=== PATIENT | male | born 1965 | race Caucasian/White ===

== ENCOUNTER 2021-05-13 15:51 | Emergency (ER) | payer OTHER ==
[~2021-05-13] VITALS: Ht 180.3 cm; Wt 74.8 kg
[2021-05-13 20:15] VITALS: BP 126/85
== END 2021-05-13 20:15 ==
LOC: ER 15:51
PROVIDERS: Emergency Medicine
DX: F03.90 Unspecified dementia, unspecified severity, without behavioral disturbance, psychotic disturbance, mood disturbance, and anxiety (principal); Z20.822 Contact with and (suspected) exposure to COVID-19; Z88.8 Allergy status to other drugs, medicaments and biological substances

== ENCOUNTER 2021-05-13 17:04 | Inpatient (IN) | payer OTHER ==
[~2021-05-13] VITALS: Ht 180.3 cm; Wt 74.9 kg
[2021-05-14 00:40] VITALS: BP 111/70
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
[2021-05-14 07:03] LABS: CHOLESTEROL 186 mg/dL (<200); HDL CHOLESTEROL 26 mg/dL (>40); LDL CHOLESTEROL 137 mg/dL (<100); TC:HDL 7.2 Ratio (Not establshd); TRIGLYCERIDE 118 mg/dL (<150); VLDL 24 mg/dL (<40)
[2021-05-14 07:25] VITALS: BP 114/76
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
[2021-05-14 11:36] VITALS: BP 114/76
--- NOTE | 2021-05-14 16:43 | NUR ---
Resummed care from overnight shift this am. Client was oriented to self and year, but did not present oriented to situation or place. 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 When asked what "here" meant in an attempt to reorient client, client stated "this place" and could not verbalize name of hospital. Client continued to ask for job applications during the assessment, with nursing encouraging him to speak to social work in regard to extrenous life events, as nursing was here for medical support. Client agreed. Client denied any anxiety and depression during assessment, insisting that he wanted to work. Client also denied any suicidal or homicidal ideation at this time. Client denied visual and audio hallucinations, though has been observed talking to the air, and has been redirected several times in terms of speaking to staff as opposed to "looking for his boss." Lung sounds were clear; client bowel sounds present. Client has continued to be redirected to activity area so that he can participate in groups. Client was also given tasks of identifying goals for treatment as opposed to work goals at this time. Client is currently in activity area sitting on chair. No further concerns.
[2021-05-14 21:04] VITALS: BP 122/81
[2021-05-15 00:06] LABS: GLYCOHEMOGLOBIN (HGB A1C) 5.9 % (4.8-5.6)
--- NOTE | 2021-05-15 03:15 | NUR ---
05-14-21 CARE TRANSFERRED 1900 OBSERVED PT SITTING IN DAY ROOM. LATER PT AAOX2, VSS, RR EVEN AND NONLABORED ON RA. PT DENIES SI/HI/VAH AND PAIN. PT REMAINES CALM AND COOPERATIVE THROUGHOUT NURSING ASSESSMENT. DURING MEDICATION ADMIN PT HAD NO DIFFICULTIES AND PT BED WAS ADJUSTED FOR COMFORT AND WEIGHT TAKEN 161.9 LBS/BED. LATER PT PRESENTSED CONFUSED, BUT EASILY REORIENTATED TO BEING AT THE HOSPITAL; THEN PT REPORTED "HE DID NOT DO WHAT THE SAID". OBSERVED PT WALKING TO DAY ROOM WITH STEADY GAIT. PT REMAINED COOPERATIVE AND EASIY DIRECTED. PT WILL CONTINUE TO BE MONITOR PER [facility] PROTOCOL.
[2021-05-15 10:26] VITALS: BP 138/84
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
[2021-05-15 20:25] VITALS: BP 123/85
--- NOTE | 2021-05-16 03:51 | NUR ---
05-15-21 CARE TRANSFERRED 1899 OBSERVED PT WALKING IN HALLWAY. LATER PT AAOX3, VSS, RR EVEN AND NONLABORED ON RA, PT HAS UE TREMORS, SKIN W/D. PT PRESENTS RESTLESS, BUT HAS REMAINED CALM AND COOPERATIVE. PT REPORT "I DID NOT DO WHAT THEY SAID I DID" PT ATTENTION SPAN BRIEF AND DISORGANIZED WITH THOUGHTS. LATER PT REQUESTED HIS MEDICATION AND UPON ADMIN PT HAD NO DIFFICULTIES. LATER PT HAD INCONTINENT MOMENT BUT TOLERATED CARES WELL WITH NO DIFFICULTIES. LATER NOTED PT RESTING IN BED WITH EYES CLOSED. PT WILL CONTINUE TO BE MONITOR PER [facility] PROTOCOL.
[2021-05-16 10:12] VITALS: BP 100/67
--- NOTE | 2021-05-16 11:37 | NUR ---
Phone call to [facility] ([phone]) for fax number. Faxed initial pt. updates.
--- NOTE | 2021-05-16 13:53 | NUR ---
Patient has been polite and cooperative this shift. He has been restless, roaming the unit. This morning, he insisted on applying for a job here. Pt needs frequent reminders of where his room is. He has spent time in the dayroom for meals and group. He denies having SI/HI or having pain. He took his medications whole with water, no difficulties present. Pt reports he had a BM sometime yesterday. He is easily redirected when needed, appears confused, unable to recall where the water station is, where his room/bathroom is. Will continue to monitor patient.
--- NOTE | 2021-05-16 15:01 | NUR ---
Provided patient with information regarding anxiety per patient's request.
--- NOTE | 2021-05-16 15:44 | NUR ---
EVERY SHIFT ASSESSMENTS INCLUDING FALLS RISK ASSESSMENT,REASSESMENT,SUICIDE REASSESSMENT ETC COMPLETED BY TRINIDAD DELVALLE LPN-REVIEWED AND DEEMED ACCURATE
[2021-05-16 19:31] VITALS: BP 120/88
--- NOTE | 2021-05-17 02:17 | NUR ---
05-16-21 CARE TRANSFERRED 1899 OBSERVED PT WALKING IN HALLWAY. LATER PT AAOX2, VSS, RR EVEN AND NONLABORED ON RA, PT DENIES PAIN AND SI/HI. PT ANXIOUS ABOUT NOT KNOWING WHERE HIS PARENTS ARE. WHEN PT ASKED WHAT YEAR, PT RESPONDED 2011, PT WAS EASILY BROUGHT TO 2020, PT HAS REMAINED CALM AND COOPERATIVE THROUGHOUT NURSING ASSESSMENT. DURING MEDICATION ADMIN PT LEFT LYING IN BED WITH EYES CLOSED, EASILY AWAKEN TO VOICE, PT REPOSITION SELF WITH EASE, PT HAD NO DIFFICULTIES TAKING MEDICATION WHOLE WITH WATER. PT BED WAS ADJUSTED FOR COMFORT. LATER PT CAME TO NURSING STATION AND REPORTED HE NEEDED TO USE A BATHROOM, PT WAS REORIENATED TO ENVIRONMENT. LATER NOTED PT RESTING SUPINE IN BED WITH EYES CLOSED. PT WILL CONTINUE TO BE MONITOR PER [facility] PROTOCOL.
[2021-05-17 10:48] VITALS: BP 111/83
--- NOTE | 2021-05-17 11:17 | NUR ---
Patient came out to eat breakfast. He had a good appetite and fluid intake. He took his medications whole, with water, no difficulty noted. Patient denies pain, SI/HI thoughts. He was restless this morning, he mentioned he was planning to see his girlfriend today, and that he is worried she has a new boyfriend. He was also aggitated this morning while sitting in the day room after the morning group session. He said "this is stupid, everyone here is stupid they don't know what they are doing, look at him he's throwing his blanket" provided 1 on 1, and he calmed down. Also provided coffee during snack time and he became less restless. He is currently laying down on the couch in the dayroom, sleeping. Patient has been cooperative this shift. Will continue to monitor patient closely.
--- NOTE | 2021-05-17 14:56 | NUR ---
INCREASINGLY RESTLESS,AGITATED AND INTRUSIVE STARTING AROUND APPROX 1330-APPEARS UNABLE TO SIT STILL FOR MORE THAN 2-3 MINUTES REDIRECTED TO ROOM/DAYROOM MULTIPLE TIMES BUT RETURNS WITHIN A MINUTE OR TWO. WILL FOLLOW STAFF INTO PEERS ROOMS AND REFUSE TO LEAVE.INCREASINGLY PARANOID ACCUSING STAFF OF HIDING HIS SHOES,WITHHOLDING FOOD/FLUIDS AND STEALING HIS BUSINESS CARDS-TAKEN TO ROOM SEVERAL TIMES IN ATTEMPT TO DECREASE STIMULI BUT REFUSES TO SIT DOWN OR STAY IN ROOM-WHEN STAFF IN ROOM WITH PT ATTEMPTING TO DEESCALATE HE BEGAN TO YELL LOUDLY INSISTING THAT NURSE DRIVE HIM TO HIS TRAILER AND BEGAN TO WALK RAPIDLY TOWARD STAFF IN THREATNING MANNER. DR MOSQUERA PAGED X2-ORDERS RECEIVED FOR ATIVAN/HALDOL PO -GIVEN AT 1450.
[2021-05-17 19:22] VITALS: BP 120/83
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
[2021-05-18 10:07] VITALS: BP 97/59
--- NOTE | 2021-05-18 12:20 | NUR ---
Alert to name only. When told what meds he was receiving he stated "I don't need any antipsychotics!" but was then compliant with medication. Denies SI/HI. Breath sounds clear. Reg HR auscultated. Color pink with brisk capillary refill and palpable peripheral pulses. No edema noted. Independent with voiding, brief dry. Active bowel sounds over soft, flat abdomen. Ambulates with regular, steady gait. Currently eating lunch with peers without s/o distress.
[2021-05-18 20:26] VITALS: BP 126/79
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
[2021-05-19 10:25] VITALS: BP 138/82
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
[2021-05-19 19:15] VITALS: BP 120/85
--- NOTE | 2021-05-20 01:49 | NUR ---
05-19-21 CARE TRANSFERRED 1899 OBSERVED COMMUNICATION WITH STAFF IN HALLWAY PT IRRITABLE AND WALKED AWAY. LATER PT AAOX2, VSS, RR EVEN AND NONLABORED ON RA, PT DENIES SI/HI/VAH, REPORTS HAVING A HEADACHE AND SCORING AT A 6 ON 0-10 SCALE. PT LUNGS CLEAR, HT RR, ABD SOFT AND ACTIVE. PT REPORTED HE IS WORRIED ABOUT HIS SON WELLBEING AND NEEDS TO GET OUT OF HERE. PT IRRITABLE BUT REMAINED COOPEATIVE WITH NURSING ASSESSMENT. DURING MEDICATION ADMIN PT HAD NO DIFFICUTIES TAKING WHOLE WITH WATER. DURING REASSESSMENT PAIN RELIEF AND SCORED AT A 2 ON 0-10 SCALE, PT REPORTED HIS HEAD FEELS BETTER. PT HAS BEEN RESTLESS. LATER NOTED PT MAKING BED, THEN REMAKING BED MULTIPLE TIMES, WHEN ASKED PT STATED HE NEEDED HELP, ASSISTED MAKING BED AND TURNING DOWN, PT HAVING IMPULSIVE MOMENT. LATER NOTED PT WAS RESTING WITH EYES CLOSED. PT WILL CONTINUE TO BE MONITOR PER [facility] PROTOCOL.
--- NOTE | 2021-05-20 08:10 | NUR ---
RT Progress Note- Joaquin has been present in the milieu throughout most of each day since his admission to [facility] last week. Joaquin often presents as restless and hyperfocused on discharge. He is easily frustrated and can be rude and hostile in conversation. RT team will continue to encourage Joaquin's participation in recreation therapy groups.
--- NOTE | 2021-05-20 09:39 | NUR ---
Updates faxed to Nat
[2021-05-20 09:54] VITALS: BP 124/93
--- NOTE | 2021-05-20 11:47 | NUR ---
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 PATIENT DENIES SI/HI, WILL CONTINUE TO MONITOR PATIENT FOR SAFETY AND BEHAVIOR.
[2021-05-20 19:35] VITALS: BP 128/64
[2021-05-20 20:06] VITALS: BP 128/64
--- NOTE | 2021-05-21 01:23 | NUR ---
PATIENT CARE WAS RESUMED AT 1900.HE IS ALERT AND AMBUATES. DENIES PAINS AND DISCOMFORT. ABLE TO VERBALIZE HIS CONCERN.LUNGS ARE CLEAR BS ACTIVE X4 QUADS. TOOK HIS MEDS WHOLE.CONTINENT OF BOWEL AND BLADDER.HE DENIES PAINS/AVH/SI/HI. BED IS LOW,LOCKED AND ALARMED. PATINET WAS AGGITATED AND PRN OLANZIPINE WAS GIVEN WITH SOME GOOD EFFECT. CONTINUE TO MONITOR
[2021-05-21 09:30] VITALS: BP 125/77
--- NOTE | 2021-05-21 10:41 | NUR ---
Nutrition followup: pt sleeping at time of visit. Per nsg was up all night. Eats 100% of meals on regular diet and at times will try to eat others food when he is done. Nsg requesting double portions of entree items. Will order. 05/19 BM. Weight discrepancy. 157# on 05/14 then 129# on 05/15. REC re-weigh pt for accuracy. Continue as low nutrition risk.
--- NOTE | 2021-05-21 11:06 | NUR ---
CARE ASSUMED AT 0700, PATIENT STANDING ON THE [address] WAY, PATIENT DID NOT GET ANY SLEEP LAST NIGHT, ALERT AND ORIENTED X2, TOOK MEDICATION WHOLE, PATIENT COMPLAINED OF WANTING MORE FOOD AFTER EATING BREAKFAST, DOCTOR DEMETRI WAS NOTIFIED AND DOUBLE PORTION OF MEAL HAS BEING ORDER FOR HIM, PATIENT CONFUSED OF WHERE THE BATHROOM WAS LOCATED AND URINATED ON HIMSELF TODAY. ASSESSMENT COMPLETED WITH CLEAR LUNGS, ACTIVE BOWEL SOUND WITH SOFT ABDOMEN, SKIN INTACT, NO EDEMA NOTED, HR REG, PATIENT AMBULATE ON A STEADY GAIT WITHOUT ANY DEVICES. PATIENT DENIES SI/HI, WILL CONTINUE TO MONITOR PATIENT FOR SAFETY AND BEHAVIOR.
--- NOTE | 2021-05-21 17:07 | NUR ---
PATIENT GOT AGITATED AND COMPLAINED OF NECK PAIN, TYLENOL PRN GIVEN, PATIENT ASSISTED IN TAKING A SHOWER AND A HAIR CUT DOWN.WILL CONTINUE TO MONITOR FOR SAFETY
[2021-05-21 19:59] VITALS: BP 113/80
--- NOTE | 2021-05-22 02:37 | NUR ---
RN paged bone worker Jael Gallegos to notify her the pt had not slept last night and was not falling asleep this chief analytics officer. Susanne Gallegos gave orders for 50mg Trazodone, repeat order in an hour if needed. Both doses were given. RN paged Susanne Gallegos again to notify her that pt was not sleeping, he was now exit seeking and hallucinations appeared worse; pt was picking at items not there, stated he saw ants crawling on him, was seeing a cat, pt was trying to eat his shirt. Susanne Gallegos gave orders to hold pt's morning dose of zyrexa, an ammonia level, and a CMP. Liseth Gallegos also instructed to monitor pt's output through the night.
--- NOTE | 2021-05-22 09:21 | NUR ---
05-22-2021--919--Patient came to my door and knocked. Let him in. He asked who his SW was and I explained it was Juliana and she wouldn't be in today. Patient appeared calmer today and his speech was more coherent and not as rough.
[2021-05-22 10:14] VITALS: BP 119/57
[2021-05-22 10:45] LABS: ALBUMIN 3.4 g/dL (3.4-5.0); CALCIUM 9.3 mg/dL (8.5-10.1); CREATININE 1.4 mg/dL (0.7-1.3); POTASSIUM 3.8 mmol/L (3.5-5.1); TOTAL BILIRUBIN 0.3 mg/dL (0.2-1.0); TOTAL PROTEIN 7.6 g/dL (6.4-8.2)
--- NOTE | 2021-05-22 13:56 | NUR ---
NOTED TO BE SOMULENT UPON INITIAL APPROACH THIS AM-SITTING ON SOFA IN DAYROOM WITH CHIN TO CHEST AND EYES CLOSED APPEARS TO BE RESTING QUIETLY-AWAKED FOR AM MEDS/BREAKFAST AND ALTHOUGH SLOW TO RESPOND TO VERBAL QUEING/DIRECTION DID EVENTUALLY DO SO AND WAS ABLE TO COMPLETE ABOUT 50 PERCENT OF MEAL PROVIDED.AM MEDICATIONS HELD PER MD ORDER. SPEECH IS MUMBLED,FRAGMENTED,INCOHERENT. GAIT VERY UNSTEADY WAS ATTEMPTING TO WALK WITH EYES CLOSED AND NOT HOLDING ONTO WALKER WITH BOTH HANDS-STUMBLED AND WOULD HAVE FALLEN TO FLOOR HAD STAFF NOT ARELY THERE TO CATCH WHEN FALLING. RESISTVE WITH ALLOWING STAFF TO WALK WITH HIM YELLING OUT"I CAN DO THIS"
--- NOTE | 2021-05-22 17:24 | NUR ---
NOTED TO BE RESTING QUIETLY IN ROOM SINCE APPROX 1100-ROUSABLE TO VERBAL STIMULI HOWEVER SOON RETURNS TO SLEEP. RESPIRATIONS COUNTED AT BEDSIDE AND BREATHING NOTED TO BE EVEN/REGULAR.
[2021-05-22 19:54] VITALS: BP 126/77
--- NOTE | 2021-05-23 00:47 | NUR ---
At onset of shift pt was wandering in the hallway. This shift pt was alert and broad affect. Pt was only oriented to self. Pt remains delusional; stating he needed to work on his car, pt made comments about people wanting to kill him. Pt was compliant with medication, but did ask if we were trying "to knock him out." Pt was compliant with vital signs. During conversation with RN, pt was very tangential and his answers to questions were vgue. 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 Pt went to bed at a reasonable time. Will continue to monitor.
--- NOTE | 2021-05-23 09:12 | NUR ---
05-23-2021--899--Patient came to my office wantong to get daxa of his VA advocate. 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 I explained it was Monday and he would need to wait to talk to his soical worker and that the VA advocates aren't available on Monday. He appeared satisfied and walked away from my office.
[2021-05-23 09:49] VITALS: BP 113/98
--- NOTE | 2021-05-23 12:57 | NUR ---
PATIENT CARE ASSUMED AT 0700 05/23/21, PATIENT WARDERING ON THE HALLWAY, ALERT AND ORIENTED X2, TOOK MEDIACTION WHOLE WITH WATER, ASSESSMENT COMPLETED, BREATH SOUND CLEAR, BOWEL SOUND ACTIVE, REG HR, SKIN INTACT, NO EDEMA NOTED, PATIENT CONTINUE TO WARDER AROUND THE COMMON AREA AND HALLWAY, HE AMBULATE ON A STEADY GAIT, INCONTINENT SOMETIMES, PATIENT IS CONFUSED, DENIES SI/HI, WILL CONTINUE TO MONITOR PATIENT FOR SAFETY AND BEHAVIOR.
[2021-05-23 20:42] VITALS: BP 126/86
--- NOTE | 2021-05-23 23:30 | NUR ---
At onset of overnight babysitter pt was sitting in day room. This shift pt was alert and oriented to self. Pt spent the evening wandering the unit and looking for a young boy named Erlin. Pt was reoriented several times, but continued to look for Erlin. Pt wandered into peers' rooms but was redirectable. Affect was constricted. Pt was irritable at times, but mostly pleasant and cooperative with staff. Pt was compliant with vital signs and medications. Pt denied psych questions, but is very tangential and focused on Erlin. Will continue to monitor.
[2021-05-24 08:00] VITALS: BP 113/79
--- NOTE | 2021-05-24 11:22 | NUR ---
Patient had breakfast in the dayroom, good appetite and fluid intake. He took his medications whole, with no difficulty. Patient was cooperative this morning while this nurse did an assessment on him. Denies SI/HI, or being in pain. Patient was asked how he was feeling today, his response was "with my hands" and laughed. He seems to be more alert and in a better mood this morning. Patient denied feeling sad/depressed, he said if he could get a cup of coffee his day would be better. Patient has been slightly anxious at times, but easily redirected. He is currently in the dayroom, laying down on the couch, asleep. Will continue to monitor pt for behaviors.
[2021-05-24 19:53] VITALS: BP 116/77
[2021-05-24 20:30] VITALS: BP 116/77
--- NOTE | 2021-05-25 03:19 | NUR ---
PATIENT HAS BEEN UP WANDERING THE HALLS AND DINING ROOM THIS EVENING. HE HAS BEEN A LITTLE RESTLESS BUT CALM AND COOPERATIVE FOR THE MOST PART. HE STILL HAS DIFFICULTY FINDING HIS ROOM AND BATHROOM BUT HAS IMPROVED SINCE LAST WEEK. HE HAS GOTTEN UP A COUPLE OF TIMES AFTER TAKING HIMSELF TO BED AND WALKED THE CASTILLO AND WAS ASSISTED BACK TO BED. PATIENT WAS REFUSING TO WEAR HIS SAFETY SOCKS IN THE CASTILLO. ASSISTED PATIENT BACK TO HIS BED SINCE HE WAS COLD AND TURNED UP HIS HEAT. PATIENT GIVEN NEW PAIR OF YELLOW SOCKS TO WEAR WHEN HE GETS BACK UP AGAIN. HE THANKED ME FOR ASSISTING HIM. PATIENT DENIES PAIN. NO SIGNS OF SI/HI/AVH NOTED TONIGHT. PATIENT IS A/0X1-2. ROUTINE ROUNDS TO ASSESS SAFETY AND STATUS OF PATIENT.
[2021-05-25 09:28] VITALS: BP 121/94
--- NOTE | 2021-05-25 10:31 | NUR ---
Patient had breakfast in the dayroom. He took his medications whole, with no difficulty. He has been calm and cooperative with cares. Patient has been wandering the halls and was redirected to the morning group session twice by this nurse, patient said "I'm tired of the same bullshit everyday" Patient denies having thoughts of SI/HI, or feeling depressed. He said he had a BM last night. Patient has napped off and on in the dayroom. He is alert and oriented to self and situation. Will continue to monitor pt.
[2021-05-25 19:47] VITALS: BP 108/77
--- NOTE | 2021-05-25 23:22 | NUR ---
PATIENT IS PLEASANTLY CONFUSED, WANDERS ALL OVER THE UNIT, GETS VERY LITTLE SLEEP, IS COMPLIANT WITH HS MEDICATIONS. PATIENT NEEDS ALOT OF REDIRECTION AND AT TIMES WILL GO IN TO OTHER PATIENT'S ROOM.
[2021-05-26 09:33] VITALS: BP 120/86
[2021-05-26 09:37] VITALS: BP 120/86
--- NOTE | 2021-05-26 10:59 | NUR ---
Nutrition followup: pt continues to eat 100% of meals on regular diet with double portions. Remains confused, wanders, sleeps little. Still no new weight scine 05/15. Discussed and requested again at team meeting. previous weight discrepancy as 157# on 05/14 and 129# on 05/15. 05/24 BM. No new recs. Continue as low risk.
--- NOTE | 2021-05-26 11:28 | NUR ---
RESUMMED CARE FROM OVERNIGHT SHIFT THIS AM, PATIENT WALKING AROUND DAY ROOM WAITING FOR BREAKFAST. PATIENT ATE BREAKFAST TOOK MEDICATION WITHOUT INCIDENCE. PATIENT DENIES SI/HI AH/VH AT PRESENT, PATIENT ALERT ORIENTED TO SELF ONLY. PATIENTS ABDOMEN SOFT BOWEL SOUNDS PRESENT, PATIENTS LUNGS CLEAR. PATIENT LIKES TO WALK AROUND HAS SOME CONFUSION AND IS FORGETFUL; PATIENT HAS NOT DISPLAYED ANY AGGRESSIVE BEHAVIORS. WILL CONTINUE TO MONITOR PATIENT FOR SAFETY AND BEHAVIORS.
--- NOTE | 2021-05-26 13:16 | NUR ---
Aprx 1215 patient observed urinating in trash can in day room. Little insight to his action when addressed by BILLBOARD POSTER staff. At 1315 pt urinated in hallway at door.
[2021-05-26 13:49] LABS: URINE BILIRUBIN NEGATIVE (Negative); URINE BLOOD NEGATIVE (Negative); URINE CLARITY CLEAR; URINE COLOR YELLOW; URINE GLUCOSE-RANDOM* NEGATIVE (Negative); URINE KETONES NEGATIVE (Negative); URINE LEUKOCYTES-REFLEX NEGATIVE (Negative); URINE NITRITE-REFLEX NEGATIVE (Negative); URINE PROTEIN (DIPSTICK) NEGATIVE (Negative); URINE UROBILINOGEN 0.2 E.U./dl (0.2-1.0)
--- NOTE | 2021-05-26 13:56 | EKG ---
[address] [place] [address] ELECTROCARDIOGRAM REPORT Name: DALIA LAWRENCE Room #: [facility] ADM IN M.R.#: [id number] Admission: 05/13/21 Attend Phys: Martin Santiago DO Discharge: Date of : 61 Report #: [id number] [facility] Test Date: 2021-05-26 Test Time: 11:34:49 Pat Name: DALIA LAWRENCE Department: Room: [facility] Gender: M Structural Analyst: NICHELLE : 1965 Requested By: Martin Santiago Order Number: [id number] MD: Abebe Otoole Measurements Intervals [place] Rate: 70 P: 70 PA: 137 QRS: 25 QRSD: 95 T: 53 QT: 405 QTc: 437 Interpretive Statements Sinus rhythm Ventricular premature complex Low voltage, extremity leads No previous ECG available for comparison Electronically Signed On 05-26-2021 13:56:02 MERCHANT MARINER by Abebe Otoole [email or web address] <ELECTRONICALLY SIGNED> By: Abebe Otoole MD 05/26/21 1356 1134 1134 Abebe Otoole MD /EPI
[2021-05-26 14:17] LABS: ABSOLUTE NEUTROPHILS 4.5 thou/uL (1.4-8.2); BASOPHILS 0.4 % (0.0-2.0); EOSINOPHILS 2.3 % (0.0-3.0); HEMATOCRIT 34.1 % (42.0-52.0); HEMOGLOBIN 11.1 gm/dL (14.0-18.0); LYMPHOCYTES 13.5 % (24.0-44.0); MCH 26.3 pg (26.0-34.0); MCHC 32.6 g/dL (28.0-37.0); MCV 80.9 fL (80.0-100.0); MONOCYTES 10.6 % (1.0-8.0); PLATELET COUNT 216 thou/uL (150-400); POLYS 73.2 % (36.0-66.0); RBC 4.22 mil/uL (4.50-6.00); RDW 15.6 % (10.5-14.5); WBC 6.1 thou/uL (4.0-11.0)
[2021-05-26 14:30] LABS: CREATININE 1.5 mg/dL (0.7-1.3); POTASSIUM 4.3 mmol/L (3.5-5.1)
--- NOTE | 2021-05-26 23:01 | NUR ---
PATIENT HAS BEEN UP ALL EVENING WALKING AROUND, GOING INTO OTHER PATIENT'S ROOMS, TRYING TO GET THROUGH LOCKED DOORS. PATIENT IS ORIENTED TO SELF ONLY AND CAN NEVER REMEMBER WHERE HIS ROOM OR BATHROOM IS AT. PATIENT DID TAKE ALL OF HS MEDICATIONS.
[2021-05-26 23:11] VITALS: BP 133/84
--- NOTE | 2021-05-27 07:54 | NUR ---
RT Progress Note- Joaquin continues to be present in the milieu each day. He socializes with peers and staff by asking questions r/t whatever goal he seems to have that day; this sometimes includes looking for his son, his truck, or needing to get to work. In groups he had improved towards the beginning of this review period in regards to ability to remain present and seated without frequently getting up to wander before returning. He however has begun to regress towards the end of this review period and appears to be increasingly restless, confused, and even hallucinating. [employer] and RT team will continue to encourage Joaquin's participation.
[2021-05-27 09:36] VITALS: BP 107/85
--- NOTE | 2021-05-27 12:28 | NUR ---
Sleeping soundly this AM. Alert to name only, confused speech. Denies SI/HI. Ambulating t/o unit without s/o distress. Breath sounds clear. Reg HR auscultated. Color pink with brisk capillary refill and palpable peripheral pulses. No edema noted. Active bowel sounds over soft, flat abdomen. Incontinent of large amt yellow urine and then was continent of yellow urine per toilet. Currently sitting in dining room with peers. No s/o distress.
[2021-05-27 13:52] VITALS: BP 107/85
[2021-05-27 14:56] VITALS: BP 107/85
--- NOTE | 2021-05-27 15:00 | NUR ---
Tolu faxed updates to [facility]
[2021-05-27 19:15] VITALS: BP 97/76
--- NOTE | 2021-05-28 05:22 | NUR ---
Assumed care of patient at 1900. Patient calm et cooperative this shift. Took all medications whole without difficulty. Ambulates the halls ad cezar with steady gait. VSWNL. Health assessment with no abnormalities noted at present time. Unable to assess SI/HI/AVH due to cognitive deficit but patient does not demonstrate any symptoms of acute emotional distress at present time. Currently resting in bed with eyes closed. Will continue to monitor per unit protocol.
[2021-05-28 09:46] VITALS: BP 112/69
[2021-05-28 09:55] VITALS: BP 112/69
--- NOTE | 2021-05-28 11:26 | NUR ---
RESUMMED CARE FROM OVERNIGHT THIS AM, PATIENT SITTING QUIET IN DAY ROOM. PATIENT ATE BREAKFAST TOOK MEDICATION WITHOUT INCIDENCE; PATIENT ALERT TO SELF. PATIENT DENIES SI/HI/AH/VH AT PRESENT PATIENTS ABDOMEN SOFT BOWEL SOUNDS PRESENT. PATIENTS LUNGS CLEAR PATIENT CALM COOPERATIVE PATIENT HAS NOT DISPLAYED ANY BEHAVIORS. WILL CONTINUE TO MONITOR PATIENT FOR SAFETY AND BEHAVIORS,
--- NOTE | 2021-05-28 13:33 | NUR ---
05-28-2021--1330--Patient seen this date. He was walking in the hallway and my door was open and he asked if he could come in. He sat and talked for qite a while. He said he thought he would walk home because his home was right down the street and he had just finished eating and thought he could make it. He continued to run his stories one into the other and at one point stated the [employer] haed sent him here but he wasn't sure why. We talked about where he was going from here. He told me he'd had his own house before and had a horse he liked to ride. Patient was very confused and difficult to follow. Patient kept stating he hoped the [employer] didn't try to get out of payiong him his pension. Patient didn't appear to have any idea he was in a hospital.
[2021-05-28 19:44] VITALS: BP 117/86
--- NOTE | 2021-05-29 05:48 | NUR ---
Assumed care of pt at 1900. Pt calm et cooperative this shift. Took all medications whole without difficulty. Ambulates the halls ad cezar with steady gait. VSWNL. Health assessment with no abnormalities noted at present time. Unable to assess SI/HI/AVH due to cognitive deficit but does not demonstrate any symptoms of acute emotional distress at present time. Spent short amount of time in dayroom watching television with peers. Currently resting in bed with eyes closed. Will continue to monitor per unit protocol.
[2021-05-29 09:35] VITALS: BP 115/80
[2021-05-29 11:47] VITALS: BP 115/80
[2021-05-29 13:33] LABS: ABSOLUTE NEUTROPHILS 4.5 thou/uL (1.4-8.2); BASOPHILS 0.4 % (0.0-2.0); EOSINOPHILS 2.5 % (0.0-3.0); HEMATOCRIT 34.9 % (42.0-52.0); HEMOGLOBIN 11.5 gm/dL (14.0-18.0); LYMPHOCYTES 13.9 % (24.0-44.0); MCH 26.8 pg (26.0-34.0); MCV 81.3 fL (80.0-100.0); MONOCYTES 9.2 % (1.0-8.0); PLATELET COUNT 203 thou/uL (150-400); RDW 16.3 % (10.5-14.5); WBC 6.1 thou/uL (4.0-11.0)
[2021-05-29 13:56] LABS: ALBUMIN 3.3 g/dL (3.4-5.0); CALCIUM 8.7 mg/dL (8.5-10.1); CREATININE 1.3 mg/dL (0.7-1.3); MAGNESIUM 1.9 mg/dL (1.8-2.4); POTASSIUM 3.9 mmol/L (3.5-5.1); TOTAL BILIRUBIN 0.2 mg/dL (0.2-1.0); TOTAL PROTEIN 7.2 g/dL (6.4-8.2)
--- NOTE | 2021-05-29 15:41 | NUR ---
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 He presented as somnolent, calm, and cooperative this morning but as the day continued he became more restless and wandering the unit. He required frequent redirection but responded calmly and appropriately to redirection. He was medication and meal compliant this shift, without difficulty. Pt was not noted to have any episodes of incontinence this shift, and asked where the bathroom was when he had to go. Pt's thought process is disorganized along with his behavior. Pt is currently restless, wandering the unit, and frequently coming to the nurses station with word salad. Pt denied any physical symptoms this shift, will continue to monitor.
[2021-05-29 18:27] VITALS: BP 127/86
--- NOTE | 2021-05-30 05:27 | NUR ---
Assumed care of patient at 1900. Pt calm et cooperative this shift. Took medications whoe without difficulty. VSWNL. Health assessment with no abnormalities noted at present time. Ambulates the halls ad cezar with steady gait. Unable to assess SI/HI/AVH due to cognitive deficit but does not demonstrate any symptoms of acute emotional distress at present time. Currently resting in bed with eyes closed. Will continue to monitor per unit protocol.
[2021-05-30 07:30] VITALS: BP 117/76
--- NOTE | 2021-05-30 11:14 | NUR ---
11:14AM - Updates faxed to [facility]
[2021-05-30 11:43] VITALS: BP 117/76
--- NOTE | 2021-05-30 13:23 | NUR ---
Resummed care from overnight shift this am. Client was in activity area eating breakfast at this time. Client presented hostile and irritable, asking staff "why do you think I don't know where I am" when asked orientation questions, and would any answer that his name was "Joaquin" but did not answer to anything else, presenting as disoriented to time, situation, and place. Client denied any depression and anxiety at this time. Client also denied any visual or audio hallucinations, stating "no." Client denied any suicidal or homicidal ideation. Client breath sounds presented clear; bowel sounds were present. Client has been wandering during this shift, or watching tv. 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 Client continues to voice this delusion, and has been redirected several times. Client has also come to staff, asking where his bathroom is, and has tried to open beatty, stating that there is a door there. Client has been shown his bathroom by several staff. 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 SALES CENTER MANAGER staff has also shown client room and bathroom. Client is currently in room. q12 minute rounds in place. No further concerns.
[2021-05-30 19:40] VITALS: BP 117/76
--- NOTE | 2021-05-31 02:21 | NUR ---
MATTHEW CARE WAS RESUMED AT 1900. HE IS ALERT AND ORIENTED. MODERATE ASSIT WITH CARE. HE AMBULATES AND ABLE TO VERBALIZE PAINS.MATTHEW IS COMPLIANT [facility] CARE. HE TOOK HIS MEDS WHOLE,DENIES PAINS/SI/AVH/HI.ON FALLL PRECAUTION.BED IS LOW, LOCKED AND ALARMED.LUNGS ARE CLEAR, BS ACTIVE X4 QUAD. YELLOW TOP AND SOCKS ON.
[2021-05-31 05:39] LABS: ABSOLUTE NEUTROPHILS 2.2 thou/uL (1.4-8.2); BASOPHILS 0.6 % (0.0-2.0); EOSINOPHILS 5.2 % (0.0-3.0); HEMATOCRIT 35.4 % (42.0-52.0); HEMOGLOBIN 11.5 gm/dL (14.0-18.0); LYMPHOCYTES 22.6 % (24.0-44.0); MCH 26.4 pg (26.0-34.0); MCHC 32.4 g/dL (28.0-37.0); MCV 81.5 fL (80.0-100.0); MONOCYTES 12.8 % (1.0-8.0); PLATELET COUNT 201 thou/uL (150-400); POLYS 58.8 % (36.0-66.0); RBC 4.34 mil/uL (4.50-6.00); RDW 15.9 % (10.5-14.5); WBC 3.7 thou/uL (4.0-11.0)
[2021-05-31 06:07] LABS: % SATURATION 18 % (20-39); IRON 49 ug/dL (65-175); TIBC 265 ug/dL (250-450)
[2021-05-31 06:35] LABS: FOLIC ACID 9.9 ng/mL (8.6-58.9)
[2021-05-31 08:38] VITALS: BP 121/84
[2021-05-31 08:39] VITALS: BP 121/84
--- NOTE | 2021-05-31 16:04 | NUR ---
PT NOTED TO STAND UP DURING SW GROUP AFTER LUNCH ,LEAVE DAYROOM WHERE GROUP WAS BEING HELD-WALK TO HALLWAY IN FRONT OF NURSES STATION PULL DOWN PANTS AND DEFECATE ON FLOOR-WHEN ASSISTED TO ROOM BY THIS CHANGE NUMBER OPERATOR HAS ANGRY FACIAL EXPRESSION AND STATES LOUDLY "THAT WAS EMBARRASING-RELUCTANT TO ALLOW STAFF TO ASSIST HIM ONTO TOILET AND PULL PANTS AND BRIEF DOWN BUT DID DO SO WITH ENCOURAGEMENT-STAFF DID STEP OUT OF RESTROOM ONCE PT SEATED ON TOILET TO ALLOW PRIVACY ASKED SEVERAL TIMES THROUGH DOOR IF WAS OK TO WHICH HE RESPONDED YES-WHEN DID NOT COME OUT 10 MINUTES LATER STAFF OBSERVED HIM TO HAVE BM ON ARMS;LEGS,HANDS AND SMEARED ONTO CLINE AND SHOWER OPENING-ATTEMPTING TO WIPE UP-REMAINS RESISITVE WITH ALLOWING STAFF TO HELP BUT WAS COMPLIENT WITH MUCH PROMPTING/ENCOURAGEMENT-ABLE TO CLEAN BM OFFPT AND DRESS IN CLEAN BRIEFS AND PANTS.
[2021-05-31 19:47] VITALS: BP 118/76
[2021-05-31 20:00] VITALS: BP 118/76
--- NOTE | 2021-06-01 01:31 | NUR ---
PATIENT HAS BEEN UP WALKING THE HALLS AT BEGINNING OF THE SHIFT. PATIENT HAD HAIRCUT TODAY AND LOOKED VERY NEAT AND CLEAN CUT. PATIENT STATES HE LIKES HIS HAIR CUT. PATIENT HAS BEEN PLEASANT AND COOPERATIVE. DENIES PAIN. DENIES SI/HI/AVH. PATIENT HAS STEADY GAIT WHEN WALKING. PATIENT WENT TO BED AROUND 2029 WITH ASSISTANCE. HE HAS BEEN RESTING WITH EYES CLOSED SINCE THEN. ROUTINE ROUNDS TO ASSESS SAFETY AND STATUS OF PATIENT. BED IN LOW POSITION. BATHROOM LIGHT ON. CONTINUING TO MONITOR.
[2021-06-01 08:59] VITALS: BP 118/84
--- NOTE | 2021-06-01 11:45 | NUR ---
PATIENT CARE ASSUMED AT 0700 - AMBULATES AROUND INDEPENDENTLY WITH WALKER. WANDERS AT TIMES INTO OTHERS ROOMS BUT EASILY DIRECTED. MAKES NEEDS KNOWN READILY. HAS BEEN CALM AND REDIRECTABLE - COMPLIANT WITH MEDICATIONS. STATES NO PAIN DISCOMFORT WHEN ASSESSED. HEART RATE STRONG AND STEADY AND LUNGS CLEAR ON AUSCULTATION. BOWEL SOUND EVIDENT IN ALL FOUR QUADRANTS. WALKS AROUND SLUMPED OVER AT SHOULDERS BUT DIRECT EYE CONTACT WHEN ADDRESSED. PATIENT GOOD APPETITE. ALERT TO SELF - BUT RESPONDS TO QUESTIONS ADDRESSED TO HIM AT TIMES.
--- NOTE | 2021-06-01 13:39 | NUR ---
Followup: remains on [facility]. Eating 100% all meals, wts are stable around 165 lb. Low nutrition risk
--- NOTE | 2021-06-01 17:39 | NUR ---
SW emailed Cat, hospital liasion for [place], concerning discharge. Cat stated they are able to accept the Pt on . Discharge was set for 06/03/2021 @ 11am. Pt will be transported [facility].
[2021-06-01 19:33] VITALS: BP 124/78
[2021-06-01 19:45] VITALS: BP 124/78
--- NOTE | 2021-06-02 03:44 | NUR ---
PATIENT CARE WAS RESUMED AT 1900. HE IS ABLE TO VERBALIZE HIS CONCERN. HE AMBULATES WITH [place]. CONTINENT OF BOWEL AND BLADDER. HE TOOK HER MEDICATON. LUNGS ARE CLEAR. HE WANDER , AN HE DENIES PAIN. AVH,SI. HE HAS A YELLOW SOCK HOME. BED IS LOW, LOCKED AND ALARM.RESTING IN BED.CONTINUE CARE AND MONITOR
--- NOTE | 2021-06-02 07:19 | EKG ---
[address] [place] [address] ELECTROCARDIOGRAM REPORT Name: DALIA LAWRENCE Room #: [facility]- ADM IN M.R.#: [id number] Admission: 05/13/21 Attend Phys: Martin Santiago DO Discharge: Date of : 61 Report #: [id number] [facility] Test Date: 2021-06-01 Test Time: 18:02:11 Pat Name: DALIA LAWRENCE Department: Room: [facility] Gender: M Sole Conditioner: FSCHWALBE : 1965 Requested By: Martin Santiago Order Number: [id number] MD: Delvis Justin Measurements Intervals [place] Rate: 76 P: 64 TN: 139 QRS: 26 QRSD: 93 T: 55 QT: 417 QTc: 469 Interpretive Statements Sinus rhythm Low voltage, extremity leads Compared to ECG 05/26/2021 11:34:49 Ventricular premature complex(es) no longer present Electronically Signed On 06-02-2021 7:18:55 PERSONAL COMPUTER NETWORK ANALYST by Delvis Justin [email or web address] <ELECTRONICALLY SIGNED> By: Delvis Justin MD, [facility] 06/02/21 07 01 01 Delvis Justin MD, [facility] /EPI
[2021-06-02 09:19] VITALS: BP 138/88
--- NOTE | 2021-06-02 09:38 | NUR ---
PATIENT CARE ASSUMED AT 0700, PATIENT STANDING ON THE CASTILLO WAY, ALERT AND ORIENTED X2, CALM AND PLEASANT WITH CARE, PATIENT IS CONFUSED, ASSESSMENT COMPLETED, ACTIVE BOWEL SOUND WITH SOFT ABDOMEN, BREATH SOUND CLEAR, SKIN INTACT NO EDEMA NOTED, PATIENT AMBULATE WITHOUT ANY DEVICES, TOOK MEDICATION WHOLE, PATIENT CAN BE INCONTINENT SOME TIMES, HE WANDERS INTO OTHER PATIENT'S ROOM AND ON THE CASTILLO WAY, NO BEHAVIOR CHANGE, PATIENT IS ABLE TO VERBALIZE NEEDS, DENIES SI/HI AND PAIN, WILL CONTINUE TO MONITOR PATIENT FOR SAFETY AND BEHAVIOR.
[2021-06-02 19:04] VITALS: BP 116/81
[2021-06-02 20:21] VITALS: BP 116/81
--- NOTE | 2021-06-03 03:17 | NUR ---
PATIENT CARE WAS RESUMED AT 1900. HE IS ALERT AND ORIENTED. ABLE TO VERBALIZE SOME CARE. LUNGS ARE CLEAR BS ACTIVE X4 QUAD. HE DENIES PAINS.SI/AVH/HI. HE AMBULATES AND TAKE HIS MEDS WHOLE. CO-OPERATIVE WITH CARE. HE IS INCONTINENT OF BLADDER. PATIENT IS CONFUSSED AND FORGETFUL. SLEEPING IN BED WITH BED LOW, LOCKED AND ALARMED. Q 12MINUTES CHECKS ARE ONGOING. CONTINUE CARE.
[2021-06-03 08:48] VITALS: BP 126/95
[2021-06-03] MEDS ORDERED: IRON325 PO (09:25)
[2021-06-03] MEDS ORDERED: DIVALPROEX SOD500 M1 PO (09:26)
[2021-06-03] MEDS ORDERED: GEODON60 MG PO (09:30)
[2021-06-03] MEDS ORDERED: FLONASE 0.05%50 MCG NASAL (09:30)
[2021-06-03] MEDS ORDERED: STIMULANT LAXA1 EACH PO (09:31)
[2021-06-03] MEDS ORDERED: MELATONIN5 M1 PO (09:32)
[2021-06-03] MEDS ORDERED: SYNTHROID25 MC1 PO (09:32)
[2021-06-03 10:00] VITALS: BP 126/95
--- NOTE | 2021-06-03 11:20 | NUR ---
RESUMMED CARE FROM OVERNIGHT SHIFT THIS AM, PATIENT ALERT ORIENTED TIMES 2. PATIENT ATE BREAKFAST TOOK SHOWER TOOK MEDICATION WITHOUT INCIDENCE. PATIENT DENIES SI/HI/AH/VH AT PRESENT. PATIENTS ABDOMEN SOFT BOWEL SOUNDS PRESENT, PATIENTS LUNGS CLEAR. PATIENT CALM COOPERATIVE PATIENT IS DISCHARGING TODAY TO [facility]. REPORT CALLED TO FACILITY PATIENTS AFTERCARE INSTRUCTIONS SENT WITH TRANSPORTER. PATIENT TAKEN DOWN IN WC AND STAFF WATCHED PATIENT GET LOADED IN TRANSPORT VAN AND DRIVEN OFF.
== END 2021-06-03 13:35 | DRG 885 ==
LOC: SBH 17:04
PROVIDERS: Internal Medicine; Nurse Practitioner; ADMIT Psychiatry & Neurology Psychiatry; ATTEND Psychiatry & Neurology Psychiatry
DX: F31.9 Bipolar disorder, unspecified (principal); F01.51 Vascular dementia, unspecified severity, with behavioral disturbance; N18.30 Chronic kidney disease, stage 3 unspecified; F10.27 Alcohol dependence with alcohol-induced persisting dementia; F20.9 Schizophrenia, unspecified; E03.9 Hypothyroidism, unspecified; E78.5 Hyperlipidemia, unspecified; F41.9 Anxiety disorder, unspecified; D64.9 Anemia, unspecified; G47.00 Insomnia, unspecified; Z66 Do not resuscitate; Z20.822 Contact with and (suspected) exposure to COVID-19; Z88.8 Allergy status to other drugs, medicaments and biological substances
CPT/HCPCS: 10880